=== PATIENT | male | born 1985 | race African-American/Black ===

== ENCOUNTER 2017-12-29 13:38 | Emergency (ER) | payer SELFPAY ==
[~2017-12-29] VITALS: Ht 198.1 cm; Wt 120.7 kg
[2017-12-29] MEDS ORDERED: TETANUS/DIPHTHERIA TOX ADULT 0.5 ML SYR IM ONE (13:45)
[2017-12-29] MEDS ORDERED: HYDROCODONE/APAP 10MG-325MG TAB PO ONE (13:45)
--- NOTE | 2017-12-29 14:28 | Diagnostic Imaging Report ---
Radiographs of the left thumb - 3 views HISTORY: Pain. Laceration. COMPARISON: None available. FINDINGS: Bones: No acute displaced fracture. Osseous alignment is within normal limits. Joints: The joint spaces are well-maintained. Soft tissues: Soft tissue swelling and apparent laceration at the distal left thumb. No radiopaque foreign body. IMPRESSION: Soft tissue swelling and apparent laceration at the distal left thumb. No radiopaque foreign body. Signed by: Dr. Krishna Disla M.D. on 12/29/2017 2:25 PM
[2017-12-29] MEDS ORDERED: LIDOCAINE HCL 1% 2 ML AMP ONE (16:25)
[2017-12-29] MEDS ORDERED: LIDOCAINE HCL 1% LOCAL INJ 20 ML VIAL INJ ONE (16:30)
[2017-12-29 17:13] VITALS: BP 110/76
[2017-12-29] MEDS ORDERED: HYDROCODONE/APAP 10MG-325MG TAB ONE (17:22)
[2017-12-29] MEDS ORDERED: TETANUS/DIPHTHERIA TOX ADULT 0.5 ML SYR ONE (17:23)
== END 2017-12-29 17:20 | disposition home or self-care (01) ==
LOC: ER 13:38
DX: S61.111A Laceration without foreign body of right thumb with damage to nail, initial encounter (principal); W45.8XXA Other foreign body or object entering through skin, initial encounter; Y99.0 Civilian activity done for income or pay
CPT/HCPCS: 12001; 73140; 90471; 90714; 99283; J2001